=== PATIENT | female | born 1995 | race Caucasian/White ===

== ENCOUNTER 2016-05-16 05:33 | Outpatient (CLI) | payer OTHER ==
[~2016-05-16] VITALS: Ht 170.2 cm; Wt 72.6 kg
--- OUTSIDE RECORDS SUMMARY | 2016-05-16 05:36 | XMS REPORT | Continuity of Care Document ---
Author Author [facility] Address Unknown Phone Unavailable Allergies Medications Problems Date Dx Coded Attending Type Code Diagnosis Diagnosed By 12/25/2013 REE BEE DO V74.1 TB SCREENING Procedures Code [place] [address] TB TEST INTRADERMAL 12/25/2013 Results Encounters ACCT No. Visit Date/Time Discharge Status Pt. Type Provider Facility Loc./Unit Complaint [id number] 12/25/2013 13:21:00 12/25/2013 23: 59:59 CLS Outpatient REE BEE DO
[2016-05-16] MEDS ORDERED: BCP PO (09:38)
== END 2016-05-16 09:47 ==
LOC: PREOP 05:33
PROVIDERS: ATTEND Otolaryngology Otolaryngology/Facial Plastic Surgery
DX: Z01.818 Encounter for other preprocedural examination (principal); J35.01 Chronic tonsillitis; J35.3 Hypertrophy of tonsils with hypertrophy of adenoids

== ENCOUNTER 2016-05-19 07:46 | Day surgery (SDC) | payer OTHER ==
[~2016-05-19] VITALS: Ht 170.2 cm; Wt 72.6 kg
[~2016-05-19 07:46] MED LIST: BCP PO
--- OUTSIDE RECORDS SUMMARY | 2016-05-19 07:49 | XMS REPORT | Continuity of Care Document ---
Author Author [facility] Organization [facility] Address Unknown Phone Unavailable Support Name Relationship Address Phone CHARO ALEMAN MD Caregiver Dora [address], [address] [place] [address] JAMES NIEVES Next Of Kin [address] [place], [place] [phone] Insurance Providers Payer Name Policy Number Subscriber Name Relationship [employer] [place] [id number] Giana Nieves 18 Self / Same As Patient Advance Directives Directive Response Recorded Date/Time Advance Directives No 05/16/16 9:35am Health Care Power of Fixed Interest Dealer No 05/16/16 9:35am Resuscitation Status Full Code 05/16/16 9:35am Problems No problem information available. Medications Current Home Medications Medication Dose Units Route Directions Days/Qty Instructions Start Date [Bcp] 1 Tab Oral Daily 05/16/16 Social History Social History Problem Response Recorded Date/Time Alcohol Use Occasionally Uses 05/16/2016 9:35am Recreational Drug Use No 05/16/2016 9:35am Recent Foreign Travel No 05/16/2016 9:35am Recent Infectious Disease Exposure No 05/16/2016 9:35am Sexually Transmitted Disease No 05/16/2016 9:35am HIV/AIDS No 05/16/2016 9:35am Smoking Status Never a Smoker 05/16/2016 9:35am Recent Hopitalizations No 05/16/2016 9:35am Sexually Transmitted Disease No 05/16/2016 9:35am Query Response Start Date Stop Date Smoking Status Never a Smoker Hospital Discharge Instructions No hospital discharge instructions. Plan of Care Discharge Date 05/16/16 9:47am Prescriptions See Medication Section Functional Status No functional status results. Allergies, Adverse Reactions, Alerts No known allergies. Immunizations No immunization records. Vital Signs Acute Vital Signs Vital Response Date/Time Height (Feet) 5 feet 05/16/2016 9:35am Height (Inches) 7.00 inches 05/16/2016 9:35am Height (Calculated Centimeters) 170.274498 cm 05/16/2016 9:35am Weight (Pounds) 160 pounds 05/16/2016 9:35am Weight (Ounces) 0.0 oz 05/16/2016 9:35am Weight (Calculated Grams) 74262.78 gm 05/16/2016 9:35am Weight (Calculated Kilograms) 72.391636 kilograms 05/16/2016 9:35am Calculated BMI 25.1 05/16/2016 9:35am Results No known relevant diagnostic tests, laboratory data and/or discharge summary. Procedures No known history of procedures. Encounters Encounter Location Arrival/Admit Date Discharge/Depart Date Attending Provider Departed Clinic [facility] 05/16/16 5:33am 05/16/16 9: 47am CHARO ALEMAN MD
--- OUTSIDE RECORDS SUMMARY | 2016-05-19 07:50 | XMS REPORT | Continuity of Care Document ---
Author Author [facility] Organization [facility] Address Unknown Phone Unavailable Support Name Relationship Address Phone CHARO ALEMAN MD Caregiver Dora N [address], [address] [place] [address] JAMES NIEVES Next Of Kin [address], [place] [phone] Insurance Providers Payer Name Policy Number Subscriber Name Relationship [employer] [place] [id number] Giana Nieves 18 Self / Same As Patient Advance Directives Directive Response Recorded Date/Time Advance Directives No 05/16/16 9:35am Health Care Power of Workers Compensation Paralegal No 05/16/16 9:35am Resuscitation Status Full Code [...] 7.00 inches 05/16/2016 9:35am Height (Calculated Centimeters) 170.848600 cm 05/16/2016 9:35am Weight (Pounds) 160 pounds 05/16/2016 9:35am Weight (Ounces) 0.0 oz 05/16/2016 9:35am Weight (Calculated Grams) 76507.78 gm 05/16/2016 9:35am Weight (Calculated Kilograms) 72.128149 kilograms 05/16/2016 9:35am Calculated BMI 25.1 05/16/2016 9:35am Results No known relevant diagnostic tests, laboratory data and/or discharge summary. Procedures No known history of procedures. Encounters Encounter Location Arrival/Admit Date Discharge/Depart Date Attending Provider Departed Clinic [facility] 05/16/16 5:33am 05/16/16 9: 47am CHARO ALEMAN MD
[2016-05-19 08:36] LABS: BASOPHILS % (AUTO) 0 % (0-10); EOSINOPHILS # (AUTO) 0.3 10^3/uL (0.0-0.3); EOSINOPHILS % (AUTO) 4 % (0-10); LYMPHOCYTES # (AUTO) 2.5 X 10^3 (1.0-4.0); LYMPHOCYTES % (AUTO) 30 % (12-44); MEAN CORPUSCULAR HEMOGLOBIN 29 PG (25-34); MEAN CORPUSCULAR HGB CONC 34 G/DL (32-36); MEAN CORPUSCULAR VOLUME 86 FL (80-99); MEAN PLATELET VOLUME 10.2 FL (7.4-10.4); MONOCYTES # (AUTO) 0.6 X 10^3 (0.0-1.0); MONOCYTES % (AUTO) 8 % (0-12); NEUTROPHILS # (AUTO) 4.8 X 10^3 (1.8-7.8); NEUTROPHILS % (AUTO) 58 % (42-75); PLATELET COUNT 299 10^3/uL (130-400); RED BLOOD COUNT 4.63 10^6/uL (4.35-5.85); RED CELL DISTRIBUTION WIDTH 12.1 % (10.0-14.5); WHITE BLOOD COUNT 8.2 10^3/uL (4.3-11.0)
[2016-05-19] MEDS ORDERED: MIDAZOLAM 2 MG/2 ML (VERSED) VIAL ONE ×2 (09:26→10:04)
[2016-05-19] MEDS ORDERED: LACTATED RINGERS 1,000 ML IV PRN (09:28)
--- NOTE | 2016-05-19 09:29 | Progress Note-Pre Operative ---
Pre-Operative Progress Note H&P Reviewed The H&P was reviewed, patient examined and no changes noted. Date H&P Reviewed: May 19, 2016 Time H&P Reviewed: 08:30 Pre-Operative Diagnosis: Rec Tonsillitis, Tonsillar hyeprtrophy CHARO ALEMAN MD May 19, 2016 9:29 am
[2016-05-19] MEDS ORDERED: MIDAZOLAM 2 MG/2 ML (VERSED) VIAL IV ONE (09:30)
[2016-05-19] MEDS ORDERED: fentaNYL INJECTION 100 MCG/2 ML AMP ONE (09:43)
[2016-05-19] MEDS ORDERED: ONDANSETRON 4 MG/2 ML (SDV) Z0FRAN ONE (09:43)
[2016-05-19] MEDS ORDERED: SEVOFLURANE (ULTANE) 15 ML INHAL SOLN ONE (09:43)
[2016-05-19] MEDS ORDERED: DEXAMETHASONE PF 10 MG/ML (DECADRON) VIAL ONE (09:43)
[2016-05-19] MEDS ORDERED: proPOfol 200 MG/20 ML (DIPRIVAN) VIAL IV ONE ×2 (09:43→10:19)
[2016-05-19] MEDS ORDERED: LACTATED RINGERS 1,000 ML IV ONE (09:43)
[2016-05-19] MEDS ORDERED: NS IV 1000 ML 1,000 ML IV SCH (10:27)
--- NOTE | 2016-05-19 10:27 | Progress Note-Post Operative ---
Post-Operative Progess Note Pre-Operative Diagnosis Rec Tonsillitis, Tonsillar hyeprtrophy Post-Operative Diagnosis same Post-Op Procedure Note Date of Procedure: May 19, 2016 Name of Procedure: Tonsillectomy Anesthesia Type get Estimated blood loss (mL): minimal Specimen(s) collected tonsils CHARO ALEMAN MD May 19, 2016 10:27 am
[2016-05-19] MEDS ORDERED: ONDANSETRON 4 MG/2 ML (SDV) Z0FRAN IVP PRN (10:30)
[2016-05-19] MEDS ORDERED: APAP 325 MG/10.15 ML LIQ (TYLENOL) UDC PO PRN (10:30)
[2016-05-19] MEDS ORDERED: MEPERIDINE (DEMEROL) INJ 50 MG/ML IVP PRN (10:30)
[2016-05-19] MEDS ORDERED: HYDROcodone/APAP 7.5MG-325 MG/15 ML (LORTAB) UDC PO PRN (10:30)
[2016-05-19] MEDS: morphine INJ 10 MG/ML 1ML (SYR OR VIAL) IVP PRN ×2 (11:01→11:06)
[2016-05-19] MEDS ORDERED: AMOX250S5 PO (12:41)
[2016-05-19] MEDS ORDERED: HYDR118S10 PO (12:41)
[2016-05-19] MEDS ORDERED: TETRACAINESUCKERS MT (12:41)
[2016-05-19] MEDS ORDERED: DEXAINTSOL PO (12:41)
== END 2016-05-19 13:30 | disposition home or self-care (01) ==
LOC: SDC 07:46
PROVIDERS: ATTEND Otolaryngology Otolaryngology/Facial Plastic Surgery
DX: J35.01 Chronic tonsillitis (principal)
CPT/HCPCS: 36415; 84703; 85025; 87081; 88304

== ENCOUNTER → 2017-12-26 | Outpatient (CLI) | payer OTHER ==
[~2017-12-26] MED LIST changes: +AMOX250S5 PO; +DEXAINTSOL PO; +HYDR118S10 PO; +TETRACAINESUCKERS MT
[2017-12-26 14:12] LABS: HEMOGLOBIN 13.5 G/DL (11.5-16.0); MEAN PLATELET VOLUME 9.3 FL (7.4-10.4); RED BLOOD COUNT 4.65 10^6/uL (4.35-5.85); RED CELL DISTRIBUTION WIDTH 12.2 % (10.0-14.5); WHITE BLOOD COUNT 5.5 10^3/uL (4.3-11.0)
[2017-12-26 14:36] LABS: ALANINE AMINOTRANSFERASE 14 U/L (0-55); ALBUMIN 4.7 GM/DL (3.2-4.5); ALKALINE PHOSPHATASE 70 U/L (40-136); BILIRUBIN,TOTAL 0.4 MG/DL (0.1-1.0); BUN/CREATININE RATIO 14; CALCIUM 9.7 MG/DL (8.5-10.1); CARBON DIOXIDE 24 MMOL/L (21-32); CHLORIDE 104 MMOL/L (98-107); CHOLESTEROL 285 MG/DL (< 200); CREATININE SERUM 0.76 MG/DL (0.60-1.30); GFR ESTIMATED > 60; GLUCOSE 84 MG/DL (70-105); HDL CHOLESTEROL 65 MG/DL (40-60); POTASSIUM 3.9 MMOL/L (3.6-5.0); SODIUM 140 MMOL/L (135-145); TOTAL PROTEIN 7.8 GM/DL (6.4-8.2); TRIGLYCERIDES 89 MG/DL (<150); VLDL CHOLESTEROL 18 MG/DL (5-40)
== END ==
LOC: LAB 13:56
PROVIDERS: ATTEND Nurse Practitioner Family
DX: Z00.00 Encounter for general adult medical examination without abnormal findings (principal)
CPT/HCPCS: 36415; 80053; 80061; 84443; 85027

== ENCOUNTER → 2020-02-06 | Outpatient (CLI) | payer OTHER ==
[~2020-02-06] MED LIST changes: -HYDR118S10 PO; +HYDR15SO6 PO
[2020-02-06 13:32] LABS: HEMOGLOBIN 11.8 g/dL (11.5-16.0); MEAN PLATELET VOLUME 9.6 fL (9.0-12.2); WHITE BLOOD COUNT 9.6 10^3/uL (4.3-11.0)
[2020-02-06 13:59] LABS: ALANINE AMINOTRANSFERASE 17 U/L (0-55); ALBUMIN 3.7 GM/DL (3.2-4.5); ALKALINE PHOSPHATASE 60 U/L (40-136); BILIRUBIN,TOTAL 0.2 MG/DL (0.1-1.0); BUN/CREATININE RATIO 10; CALCIUM 8.9 MG/DL (8.5-10.1); CARBON DIOXIDE 22 MMOL/L (21-32); CHLORIDE 106 MMOL/L (98-107); CREATININE SERUM 0.58 MG/DL (0.60-1.30); GFR ESTIMATED > 60; GLUCOSE 85 MG/DL (70-105); POTASSIUM 3.5 MMOL/L (3.6-5.0); SODIUM 137 MMOL/L (135-145); TOTAL PROTEIN 6.5 GM/DL (6.4-8.2)
[2020-02-06 14:15] LABS: MAGNESIUM 1.6 MG/DL (1.6-2.4)
== END ==
LOC: CARD 13:30
PROVIDERS: ATTEND Nurse Practitioner Family
DX: R00.2 Palpitations (principal)
CPT/HCPCS: 36415; 80053; 83735; 84443; 85027; 93225; 93226

== ENCOUNTER → 2020-02-17 | Outpatient (CLI) | payer OTHER ==
[2020-02-17 10:59] LABS: BUN/CREATININE RATIO 10; CALCIUM 8.7 MG/DL (8.5-10.1); CARBON DIOXIDE 19 MMOL/L (21-32); CHLORIDE 107 MMOL/L (98-107); CREATININE SERUM 0.59 MG/DL (0.60-1.30); GFR ESTIMATED > 60; GLUCOSE 110 MG/DL (70-105); POTASSIUM 4.1 MMOL/L (3.6-5.0); SODIUM 136 MMOL/L (135-145)
== END ==
LOC: LAB 10:18
PROVIDERS: ATTEND Nurse Practitioner Family
DX: R00.2 Palpitations (principal); Z20.828 Contact with and (suspected) exposure to other viral communicable diseases
CPT/HCPCS: 36415; 80048; 83735; 86769

== ENCOUNTER → 2020-09-17 | Outpatient (CLI) | payer OTHER ==
[2020-09-17 12:48] LABS: CHLORIDE 106 MMOL/L (98-107); POTASSIUM 4.1 MMOL/L (3.6-5.0); SODIUM 141 MMOL/L (135-145)
[2020-09-17 12:50] LABS: CALCIUM 9.3 MG/DL (8.5-10.1); GLUCOSE 91 MG/DL (70-105)
[2020-09-17 12:52] LABS: CARBON DIOXIDE 22 MMOL/L (21-32)
[2020-09-17 12:54] LABS: CREATININE SERUM 0.75 MG/DL (0.60-1.30); GFR ESTIMATED > 60
[2020-09-17 12:55] LABS: BUN/CREATININE RATIO 17
[2020-09-17 12:56] LABS: MAGNESIUM 2.1 MG/DL (1.6-2.4)
== END ==
LOC: LAB 12:05
PROVIDERS: ATTEND Nurse Practitioner Family
DX: R00.2 Palpitations (principal); Z20.822 Contact with and (suspected) exposure to COVID-19
CPT/HCPCS: 36415; 80048; 83735; 86769

== ENCOUNTER → 2020-12-24 | Outpatient (CLI) | payer OTHER ==
[2020-12-24 17:27] LABS: CALCIUM 9.5 MG/DL (8.5-10.1); CREATININE SERUM 0.75 MG/DL (0.60-1.30); MAGNESIUM 1.8 MG/DL (1.6-2.4); POTASSIUM 3.9 MMOL/L (3.6-5.0)
== END ==
LOC: LAB 16:47
PROVIDERS: ATTEND Internal Medicine Cardiovascular Disease
DX: R00.2 Palpitations (principal)
CPT/HCPCS: 36415; 80048; 83735

== ENCOUNTER → 2021-12-02 | Day surgery (SDC) | payer OTHER ==
--- NOTE | 2021-12-02 17:10 | Diagnostic Imaging Report ---
INDICATION: Right-sided parotiditis. COMPARISON: None. FINDINGS: There is no fluid collection. No evidence of an abscess. A probable lymph node measuring 1 cm in the region of clinical complaint is noted without its morphological distortion. IMPRESSION: No abnormal color Doppler blood flow. No fluid collection. Likely incidental subcentimeter reactive lymph node noted. Dictated by: Dictated on workstation # [id number]
== END ==
LOC: RAD 14:00
PROVIDERS: ATTEND Otolaryngology Otolaryngology/Facial Plastic Surgery
DX: K11.20 Sialoadenitis, unspecified (principal)
CPT/HCPCS: 76536

== ENCOUNTER → 2022-06-03 | Outpatient (CLI) | payer OTHER ==
[2022-06-03 06:23] LABS: HEMATOCRIT 40 % (35-52); HEMOGLOBIN 13.3 g/dL (11.5-16.0); MEAN CORPUSCULAR HEMOGLOBIN 29 pg (25-34); MEAN CORPUSCULAR HGB CONC 34 g/dL (32-36); MEAN CORPUSCULAR VOLUME 86 fL (80-99); MEAN PLATELET VOLUME 9.6 fL (9.0-12.2); PLATELET COUNT 281 10^3/uL (130-400)
[2022-06-03 06:39] LABS: ALBUMIN 4.3 GM/DL (3.2-4.5); BILIRUBIN,TOTAL 0.3 MG/DL (0.1-1.0); CALCIUM 9.1 MG/DL (8.5-10.1); CREATININE SERUM 0.69 MG/DL (0.60-1.30); POTASSIUM 3.8 MMOL/L (3.6-5.0); TOTAL PROTEIN 6.9 GM/DL (6.4-8.2)
== END ==
LOC: LAB 05:58
PROVIDERS: ATTEND Internal Medicine
DX: Z00.00 Encounter for general adult medical examination without abnormal findings (principal); D64.9 Anemia, unspecified
CPT/HCPCS: 36415; 80053; 80061; 82607; 82728; 83036; 83540; 84439; 84443; 85027